=== PATIENT | male | born 1950 | race Caucasian/White ===

== ENCOUNTER 2021-07-17 22:05 | Emergency (ER) | payer MEDICARE, OTHER ==
[~2021-07-17] VITALS: Ht 180.3 cm; Wt 103.4 kg
[~2021-07-17 22:05] MED LIST: BAYER CHEWABLE81 MG PO; CELECOXIB200 MG PO; FISH OIL 1,0001 EAC3 PO; HYDROCODON-ACE1 EA11 PO; LIPITOR10 MG; OSTERA TABLET1 EACH PO; VITAMIN C250 MG PO
--- NOTE | 2021-07-18 22:04 | EKG ---
[facility] [address] [facility] [place] [address] Signed Sinus tachycardia Possible Left atrial enlargement Right bundle branch block Possible Lateral infarct , age undetermined Inferior infarct (cited on or before 14-JUL-2021) Abnormal ECG When compared with ECG of 14-JUL-2021 16:35, fusion complexes are no longer present premature ventricular complexes are no longer present Confirmed by CHE GRANADOS DO ([id number]) on 07/18/2021 10:04:06 PM Electronically Signed By: CHE GRANADOS DO 07/18/[id number] PATIENT NAME: BROOKE ABDUL Electrocardiogram DATE OF : 50 PHYSICIAN: CHE GRANADOS DO REPORT #: [id number] REPORT IS CONFIDENTIAL AND NOT TO BE RELEASED WITHOUT AUTHORIZATION
== END 2021-07-18 01:15 | disposition home or self-care (01) ==
LOC: ED 22:05
DX: M96.89 Other intraoperative and postprocedural complications and disorders of the musculoskeletal system (principal); Z79.82 Long term (current) use of aspirin; Z79.899 Other long term (current) drug therapy
CPT/HCPCS: 71045; 80053; 83735; 84484; 85025; 93005; 93010; 96374; 99284-25; J1940

== ENCOUNTER 2024-08-09 19:19 | Emergency (ER) | payer MEDICARE, OTHER ==
[~2024-08-09] VITALS: Ht 180.3 cm; Wt 106.0 kg
[2024-08-09] MEDS ORDERED: TAMSULOSIN HCL 0.4 MG CAP PO ONE (20:00)
[2024-08-09] MEDS ORDERED: LIDOCAINE 2% VISCOUS 6 ML SYR TOP ONE (20:00)
[2024-08-09 20:21] LABS: EOSINOPHILS 2.7 % (0-6); HEMATOCRIT 45.2 % (35.0-50.0); HEMOGLOBIN 15.3 g/dL (12.0-18.0); MCH 32.3 (27-36); MCHC 33.9 g/dl (30-36); MCV 95.3 fl (81-99); MONOCYTES 8.4 % (0-12); NEUTROPHILS 67.9 % (39-80); PLATELET COUNT 271 K/uL (140-440); RBC 4.75 M/ul (4.3-5.7); RDW 14.9 (10.5-15.0)
[2024-08-09 20:26] LABS: COLLECTION TYPE, URINE CLEAN CATCH
[2024-08-09 20:27] LABS: BACTERIA, URINE RARE /hpf (negative); CASTS, URINE NONE SEEN \\lpf; CRYSTALS, URINE NONE SEEN (0-1+); EPITHELIAL CELLS, URINE NONE SEEN /lpf (0-1+); RED BLOOD CELLS, URINE >50 /hpf (0-5); REFLEX CULTURE, URINE Yes (No)
[2024-08-09 20:37] LABS: ALBUMIN 3.8 g/dL (3.4-5.0); ALBUMIN/GLOBULIN RATIO 0.9 (1.1-2.4); ANION GAP 15.2 (7-21); BILIRUBIN, TOTAL 0.7 ng/dL (0.2-1.0); BUN/CREATININE RATIO 11.23 (6.0-28.6); CALCIUM 9.3 mg/dL (8.5-10.1); CREATININE, SERUM 0.89 mg/dL (0.70-1.30); POTASSIUM 3.2 mmol/L (3.5-5.1)
[2024-08-09] MEDS ORDERED: METOPROLOL SUCC25 MG PO (20:39)
[2024-08-09] MEDS ORDERED: ENTRESTO 24 MG1 EACH PO (20:39)
[2024-08-09] MEDS ORDERED: JARDIANCE10 MG PO (20:39)
[2024-08-09] MEDS ORDERED: POTASSIUM CHLORIDE 10 MEQ TABCR PO ONE (21:00)
[2024-08-09] MEDS ORDERED: FLOMAX0.4 MG PO (22:03)
[2024-08-09 22:15] VITALS: BP 117/69
== END 2024-08-09 22:15 | disposition home or self-care (01) ==
LOC: ED 19:19
PROVIDERS: Family Medicine
DX: N40.1 Benign prostatic hyperplasia with lower urinary tract symptoms (principal); R33.8 Other retention of urine; I71.40 Abdominal aortic aneurysm, without rupture, unspecified; Z79.899 Other long term (current) drug therapy; Z79.82 Long term (current) use of aspirin
CPT/HCPCS: 36415; 51702; 51798; 74176; 80053; 81001; 84153; 85025; 87088; 99284-25; A9270; G0103